=== PATIENT | male | born 1995 | race Hispanic/Latino ===

== ENCOUNTER 2019-03-14 21:46 | Emergency (ER) | payer OTHER ==
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
[2019-03-14] MEDS ORDERED: HYDROCODONE/APAP 5/325 MG TAB ONE (22:53)
[2019-03-14] MEDS ORDERED: TETANUS & DIPHTHERIA TOX,ADULT 0.5 ML VIAL ONE (23:01)
--- NOTE | 2019-03-15 08:16 | RAD REPORT ---
EXAM DESCRIPTION: RAD - Hand Left 3 View - 03/14/2019 10:32 pm CLINICAL HISTORY: Hand pain following trauma COMPARISON: None. FINDINGS: Transverse fracture is present at the base of the fourth metacarpal. No significant distra ction or angulation. Articular surface does not appear to be involved. No other fracture confirmed. N o foreign body. IMPRESSION: Transverse fracture at the base of the left fourth metacarpal. No distraction or angulat ion.
== END 2019-03-14 23:24 | disposition home or self-care (01) ==
LOC: ER 21:46
PROC: 2W3KX1Z Immobilization of Left Finger using Splint (ICD-10-PCS; principal; 2019-03-14)
DX: S62.345A Nondisplaced fracture of base of fourth metacarpal bone, left hand, initial encounter for closed fracture (principal); W50.0XXA Accidental hit or strike by another person, initial encounter; Y93.9 Activity, unspecified; Y92.009 Unspecified place in unspecified non-institutional (private) residence as the place of occurrence of the external cause; Z23 Encounter for immunization
CPT/HCPCS: 90714